=== PATIENT | female | born 1990 | race Caucasian/White ===

== ENCOUNTER 2017-10-20 09:21 | Emergency (ER) | payer MEDICAID ==
[~2017-10-20] VITALS: Ht 160 cm; Wt 73.7 kg
[2017-10-20 10:08] VITALS: BP 119/77
--- NOTE | 2017-10-20 10:11 | NUR ---
PT AMBULATES TO CHAIR D
--- NOTE | 2017-10-20 10:26 | NUR ---
PT COMES TO ER FOR C/O HR [employer] COUGH AND GENERALIZED BODY ACHES X 2 DAYS. PT DENIES FEVERS, BUT REPORTS CHILLS. NO N/V/D. RESP EVEN AND UNLABORED, ON RA@100%. LS-CLR CHEO, DENIES ANY CP. SKIN W/D/I.
--- NOTE | 2017-10-20 10:41 | NUR ---
DR PUENTE AT BEDSIDE FOR EXAM
[2017-10-20 11:33] VITALS: BP 126/81
--- NOTE | 2017-10-20 11:34 | NUR ---
Patient discharged with v/s stable. Written and verbal after care instructions given and explained. Patient alert, oriented and verbalized understanding of instructions. Ambulatory with steady gait. All questions addressed prior to discharge. ID band removed. Patient advised to follow up with PMD. Rx of TESSALON, ALBUTEROL given. Patient educated on indication of medication including possible reaction and side effects. Opportunity to ask questions provided and answered.
== END 2017-10-20 11:34 | disposition home or self-care (01) ==
LOC: MED 09:21
DX: B34.9 Viral infection, unspecified (principal)
CPT/HCPCS: 99283